=== PATIENT | female | born 1960 | race Caucasian/White ===

== ENCOUNTER 2016-09-12 18:34 | Inpatient (IN) | payer MEDICARE ==
[~2016-09-12] VITALS: Ht 160 cm; Wt 55.8 kg
[2016-09-12 19:25] LABS: HEMATOCRIT 39.8 % (36.0-46.0); MCH 30.4 PG (29.0-34.0); MCHC 35.2 G/DL (30.0-36.0); MCV 86.3 FL (83-99); PLATELET COUNT 299 K/uL (156-360); RBC DIS.WIDTH-CV 13.4 % (11.8-14.6); RBC DIS.WIDTH-SD 41.7 % (39-53); RED BLOOD COUNT 4.61 M/uL (3.80-5.20); WHITE BLOOD COUNT 17.5 K/uL (4.1-10.2)
[2016-09-12 19:38] LABS: CHLORIDE 103 mEq/L (99-109); POTASSIUM 3.5 mEq/L (3.7-5.4); SODIUM 137 mEq/L (136-147)
[2016-09-12 19:39] LABS: GLUCOSE 106 mg/dL (70-99)
[2016-09-12 19:41] LABS: ANION GAP 12 MEQ/L (2-14)
[2016-09-12 19:43] LABS: GFR ESTIMATE (CALCULATED) 54 mL/min/
[2016-09-12 19:44] LABS: UREA NITROGEN (BUN) 21 mg/dL (9-23)
[2016-09-12 19:51] LABS: TROP-I INTERPRETATION NEGATIVE; TROPONIN-I < 0.01 ng/mL (0.0-0.30)
[2016-09-12] MEDS ORDERED: LEVO-T100 MCG PO (20:47)
[2016-09-12] MEDS ORDERED: TYLENOL EXTRA500 MG PO (21:28)
[2016-09-12 22:55] LABS: TOTAL BILIRUBIN 0.8 mg/dL (0.0-1.0)
[2016-09-12 22:56] LABS: ALKALINE PHOSPHATASE 107 IU/L (3-129)
[2016-09-12 22:58] LABS: DIRECT BILIRUBIN 0.5 mg/dL (0.0-0.3)
[2016-09-12 23:18] LABS: INFLUENZA A VIRAL ANTIGEN NEGATIVE; INFLUENZA B VIRAL ANTIGEN NEGATIVE
[2016-09-13 00:37] VITALS: BP 110/58
[2016-09-13] MEDS ORDERED: VITAMIN D5000 UNI1 PO (01:30)
[2016-09-13] MEDS ORDERED: CYANOCOBALAM1000 MCG PO (01:32)
[2016-09-13] MEDS ORDERED: CALICUM PO (01:37)
[2016-09-13 02:01] LABS: TROP-I INTERPRETATION NEGATIVE; TROPONIN-I < 0.01 ng/mL (0.0-0.30)
[2016-09-13 04:20] VITALS: BP 93/61
[2016-09-13 07:00] LABS: INTERNAL CONTROL VALID? YES
[2016-09-13 08:00] VITALS: BP 99/65
[2016-09-13 08:38] LABS: POINT-OF-CARE METER ID UU14149396
[2016-09-13 09:38] LABS: EOSINOPHIL (%) 0 % (0-5); HEMATOCRIT 30.9 % (36.0-46.0); IMMATURE GRANULOCYTE (%) 0.4 % (0.0-0.7); IMMATURE GRANULOCYTE COUNT 0.1 K/uL; LYMPHOCYTE COUNT 1.2 K/uL (1.0-2.8); MCH 30.3 PG (29.0-34.0); MCHC 34.3 G/DL (30.0-36.0); MCV 88.3 FL (83-99); MEAN PLAT.VOLUME 10.1 uM^3 (9.5-12.4); MONOCYTE (%) 2.6 % (3-12); MONOCYTE COUNT 0.3 K/uL (0-0.8); NEUTROPHIL (%) 86.1 % (45-76); NEUTROPHIL COUNT 9.6 K/uL (1.8-6.4); PLATELET COUNT 228 K/uL (156-360); RBC DIS.WIDTH-SD 45.2 % (39-53); WHITE BLOOD COUNT 11.2 K/uL (4.1-10.2)
[2016-09-13 09:49] LABS: ANION GAP 8 MEQ/L (2-14); CHLORIDE 109 MEQ/L (99-109); POTASSIUM 3.9 MEQ/L (3.7-5.4); SAMPLE HEMOLYSIS CHECK 0; SAMPLE ICTERIC CHECK 0; SAMPLE LIPEMIA CHECK 0; SODIUM 138 MEQ/L (136-147)
[2016-09-13 09:54] LABS: GFR ESTIMATE (CALCULATED) > 59 mL/min/; GLUCOSE 94 mg/dL (70-99); UREA NITROGEN (BUN) 25 mg/dL (9-23)
[2016-09-13 09:58] LABS: TROP-I INTERPRETATION NEGATIVE; TROPONIN-I < 0.01 ng/mL (0.0-0.30)
[2016-09-13 11:56] LABS: POINT-OF-CARE METER ID UU13113807
[2016-09-13 16:30] VITALS: BP 122/77
[2016-09-13 17:56] LABS: POINT-OF-CARE METER ID UU13113807
[2016-09-13 20:15] VITALS: BP 118/75
[2016-09-13 23:30] VITALS: BP 103/60
[2016-09-14 00:40] VITALS: BP 112/69
[2016-09-14 07:40] LABS: HEMATOCRIT 32.1 % (36.0-46.0); MCH 30.5 PG (29.0-34.0); MCHC 34.3 G/DL (30.0-36.0); MCV 88.9 FL (83-99); PLATELET COUNT 262 K/uL (156-360); RBC DIS.WIDTH-CV 14.3 % (11.8-14.6); RBC DIS.WIDTH-SD 46.8 % (39-53); RED BLOOD COUNT 3.61 M/uL (3.80-5.20)
[2016-09-14 07:43] LABS: WHITE BLOOD COUNT 14.9 K/uL (4.1-10.2)
[2016-09-14 07:57] LABS: ALKALINE PHOSPHATASE 72 IU/L (3-129); ANION GAP 10 MEQ/L (2-14); CHLORIDE 108 MEQ/L (99-109); GFR ESTIMATE (CALCULATED) > 59 mL/min/; GLUCOSE 82 mg/dL (70-99); POTASSIUM 3.7 MEQ/L (3.7-5.4); SAMPLE HEMOLYSIS CHECK 0; SAMPLE ICTERIC CHECK 0; SAMPLE LIPEMIA CHECK 0; SODIUM 138 MEQ/L (136-147); TOTAL BILIRUBIN 0.4 MG/DL (0.0-1.0); UREA NITROGEN (BUN) 16 mg/dL (9-23)
[2016-09-14 08:00] VITALS: BP 110/64
[2016-09-14 12:00] VITALS: BP 116/77
[2016-09-14 14:20] LABS: C DIFF TOXIN NEGATIVE (NEGATIVE)
[2016-09-14 14:23] LABS: PROBE CHECK PASS; SPECIMEN PROCESSING CONTROL PASS
[2016-09-14 16:00] VITALS: BP 117/71
[2016-09-15] VITALS: BP 122/71
[2016-09-15 07:00] VITALS: BP 124/72
[2016-09-15 12:50] LABS: HEMATOCRIT 34.4 % (36.0-46.0); MCH 30.6 PG (29.0-34.0); MCHC 34.6 G/DL (30.0-36.0); MCV 88.4 FL (83-99); RBC DIS.WIDTH-CV 14.4 % (11.8-14.6); RBC DIS.WIDTH-SD 46.5 % (39-53); RED BLOOD COUNT 3.89 M/uL (3.80-5.20); WHITE BLOOD COUNT 18.6 K/uL (4.1-10.2)
[2016-09-15 12:56] LABS: MEAN PLAT.VOLUME 10.1 uM^3 (9.5-12.4)
[2016-09-15 12:57] LABS: PLATELET COUNT 384 K/uL (156-360)
[2016-09-15 13:10] LABS: ANION GAP 13 MEQ/L (2-14); CHLORIDE 109 MEQ/L (99-109); GFR ESTIMATE (CALCULATED) > 59 mL/min/; GLUCOSE 78 mg/dL (70-99); POTASSIUM 3.5 MEQ/L (3.7-5.4); SAMPLE HEMOLYSIS CHECK 0; SAMPLE ICTERIC CHECK 0; SAMPLE LIPEMIA CHECK 0; SODIUM 142 MEQ/L (136-147); UREA NITROGEN (BUN) 10 mg/dL (9-23)
[2016-09-15 13:27] LABS: BASOPHIL COUNT 0.1 K/uL (0-0.1); EOSINOPHIL (%) 0.2 % (0-5); HEMATOLOGY COMMENT 1 SMEAR COMPATIBLE; IMMATURE GRANULOCYTE (%) 1.2 % (0.0-0.7); IMMATURE GRANULOCYTE COUNT 0.2 K/uL; LYMPHOCYTE COUNT 2.3 K/uL (1.0-2.8); MONOCYTE (%) 2.7 % (3-12); MONOCYTE COUNT 0.5 K/uL (0-0.8); NEUTROPHIL COUNT 15.4 K/uL (1.8-6.4); USER ID STC
[2016-09-15 15:00] VITALS: BP 127/83
[2016-09-16] VITALS: BP 126/75
[2016-09-16 04:17] LABS: BASOPHIL COUNT 0.1 K/uL (0-0.1); EOSINOPHIL (%) 0.4 % (0-5); EOSINOPHIL COUNT 0.1 K/uL (0-0.3); HEMATOCRIT 28.4 % (36.0-46.0); IMMATURE GRANULOCYTE (%) 1.6 % (0.0-0.7); IMMATURE GRANULOCYTE COUNT 2.5 K/uL; LYMPHOCYTE COUNT 2.6 K/uL (1.0-2.8); MCH 29.6 PG (29.0-34.0); MCHC 33.5 G/DL (30.0-36.0); MCV 88.5 FL (83-99); MEAN PLAT.VOLUME 9.5 uM^3 (9.5-12.4); MONOCYTE (%) 4.1 % (3-12); MONOCYTE COUNT 0.7 K/uL (0-0.8); NEUTROPHIL (%) 77.1 % (45-76); NEUTROPHIL COUNT 12.4 K/uL (1.8-6.4); PLATELET COUNT 389 K/uL (156-360); RBC DIS.WIDTH-CV 14.2 % (11.8-14.6); RBC DIS.WIDTH-SD 44.3 % (39-53); RED BLOOD COUNT 3.21 M/uL (3.80-5.20); WHITE BLOOD COUNT 16.1 K/uL (4.1-10.2)
[2016-09-16 04:31] LABS: CHLORIDE 109 mEq/L (99-109); POTASSIUM 3.6 mEq/L (3.7-5.4); SODIUM 139 mEq/L (136-147)
[2016-09-16 04:33] LABS: GLUCOSE 78 mg/dL (70-99)
[2016-09-16 04:35] LABS: ANION GAP 11 MEQ/L (2-14)
[2016-09-16 04:37] LABS: GFR ESTIMATE (CALCULATED) > 59 mL/min/
[2016-09-16 04:38] LABS: UREA NITROGEN (BUN) 10 mg/dL (9-23)
[2016-09-16 08:00] VITALS: BP 127/76
[2016-09-16 12:00] VITALS: BP 109/62
[2016-09-16 16:46] VITALS: BP 127/73
[2016-09-16 23:36] VITALS: BP 126/67
[2016-09-17 06:26] LABS: HEMATOCRIT 28.1 % (36.0-46.0); MCH 30.5 PG (29.0-34.0); MCHC 34.5 G/DL (30.0-36.0); MCV 88.4 FL (83-99); MEAN PLAT.VOLUME 9.5 uM^3 (9.5-12.4); PLATELET COUNT 391 K/uL (156-360); RBC DIS.WIDTH-CV 14.5 % (11.8-14.6); RBC DIS.WIDTH-SD 47.3 % (39-53); RED BLOOD COUNT 3.18 M/uL (3.80-5.20); WHITE BLOOD COUNT 13.3 K/uL (4.1-10.2)
[2016-09-17 06:35] LABS: EOSINOPHIL (%) 1.6 % (0-5); EOSINOPHIL COUNT 0.2 K/uL (0-0.3); IMMATURE GRANULOCYTE (%) 1.8 % (0.0-0.7); IMMATURE GRANULOCYTE COUNT 0.2 K/uL; LYMPHOCYTE COUNT 2.7 K/uL (1.0-2.8); MONOCYTE (%) 3.5 % (3-12); MONOCYTE COUNT 0.5 K/uL (0-0.8); NEUTROPHIL (%) 72.5 % (45-76); NEUTROPHIL COUNT 9.6 K/uL (1.8-6.4)
[2016-09-17 07:12] LABS: HEMATOLOGY COMMENT 1 SMEAR COMPATIBLE; USER ID CCL
[2016-09-17 07:15] LABS: ANION GAP 9 MEQ/L (2-14); CHLORIDE 108 MEQ/L (99-109); GFR ESTIMATE (CALCULATED) > 59 mL/min/; GLUCOSE 86 mg/dL (70-99); POTASSIUM 3.4 MEQ/L (3.7-5.4); SAMPLE HEMOLYSIS CHECK 0; SAMPLE ICTERIC CHECK 0; SAMPLE LIPEMIA CHECK 0; SODIUM 140 MEQ/L (136-147); UREA NITROGEN (BUN) 7 mg/dL (9-23)
[2016-09-17 07:54] VITALS: BP 109/61
[2016-09-17 15:00] VITALS: BP 135/69
[2016-09-17 23:50] VITALS: BP 116/64
[2016-09-18 06:37] LABS: HEMATOCRIT 31.8 % (36.0-46.0); MCH 29.7 PG (29.0-34.0); MCHC 33.3 G/DL (30.0-36.0); MCV 89.1 FL (83-99); MEAN PLAT.VOLUME 9.4 uM^3 (9.5-12.4); PLATELET COUNT 457 K/uL (156-360); RBC DIS.WIDTH-CV 14.6 % (11.8-14.6); RBC DIS.WIDTH-SD 47.3 % (39-53); RED BLOOD COUNT 3.57 M/uL (3.80-5.20); WHITE BLOOD COUNT 11.6 K/uL (4.1-10.2)
[2016-09-18 06:47] LABS: EOSINOPHIL (%) 1.1 % (0-5); EOSINOPHIL COUNT 0.1 K/uL (0-0.3); IMMATURE GRANULOCYTE (%) 1.6 % (0.0-0.7); IMMATURE GRANULOCYTE COUNT 0.2 K/uL; LYMPHOCYTE COUNT 2.2 K/uL (1.0-2.8); MONOCYTE COUNT 0.5 K/uL (0-0.8); NEUTROPHIL (%) 73.8 % (45-76); NEUTROPHIL COUNT 8.6 K/uL (1.8-6.4)
[2016-09-18 06:57] LABS: ANION GAP 10 MEQ/L (2-14); CHLORIDE 106 MEQ/L (99-109); GFR ESTIMATE (CALCULATED) > 59 mL/min/; GLUCOSE 83 mg/dL (70-99); POTASSIUM 3.4 MEQ/L (3.7-5.4); SAMPLE HEMOLYSIS CHECK 0; SAMPLE ICTERIC CHECK 0; SAMPLE LIPEMIA CHECK 0; SODIUM 138 MEQ/L (136-147); UREA NITROGEN (BUN) 5 mg/dL (9-23)
[2016-09-18 07:46] VITALS: BP 121/76
[2016-09-18 16:00] VITALS: BP 126/81
[2016-09-18 23:40] VITALS: BP 123/75
[2016-09-19 06:02] LABS: HEMATOCRIT 30.4 % (36.0-46.0); MCH 29.3 PG (29.0-34.0); MCHC 32.9 G/DL (30.0-36.0); MCV 89.1 FL (83-99); MEAN PLAT.VOLUME 9.3 uM^3 (9.5-12.4); PLATELET COUNT 428 K/uL (156-360); RBC DIS.WIDTH-CV 14.3 % (11.8-14.6); RBC DIS.WIDTH-SD 46.7 % (39-53); RED BLOOD COUNT 3.41 M/uL (3.80-5.20); WHITE BLOOD COUNT 9.4 K/uL (4.1-10.2)
[2016-09-19 06:25] LABS: EOSINOPHIL (%) 1.3 % (0-5); EOSINOPHIL COUNT 0.1 K/uL (0-0.3); IMMATURE GRANULOCYTE (%) 1.8 % (0.0-0.7); IMMATURE GRANULOCYTE COUNT 0.2 K/uL; LYMPHOCYTE COUNT 1.8 K/uL (1.0-2.8); MONOCYTE (%) 3.9 % (3-12); MONOCYTE COUNT 0.4 K/uL (0-0.8); NEUTROPHIL (%) 74.1 % (45-76)
[2016-09-19 06:32] LABS: ALKALINE PHOSPHATASE 69 IU/L (3-129); ANION GAP 10 MEQ/L (2-14); CHLORIDE 106 MEQ/L (99-109); GFR ESTIMATE (CALCULATED) > 59 mL/min/; GLUCOSE 86 mg/dL (70-99); POTASSIUM 3.9 MEQ/L (3.7-5.4); SAMPLE HEMOLYSIS CHECK 0; SAMPLE ICTERIC CHECK 0; SAMPLE LIPEMIA CHECK 0; SODIUM 140 MEQ/L (136-147); TOTAL BILIRUBIN 0.4 MG/DL (0.0-1.0); UREA NITROGEN (BUN) 4 mg/dL (9-23)
[2016-09-19 08:02] VITALS: BP 138/79
[2016-09-19 16:16] VITALS: BP 125/79
[2016-09-19 20:00] VITALS: BP 118/78
[2016-09-20] VITALS: BP 130/68
[2016-09-20 06:24] LABS: EOSINOPHIL (%) 1.7 % (0-5); EOSINOPHIL COUNT 0.2 K/uL (0-0.3); HEMATOCRIT 30.7 % (36.0-46.0); IMMATURE GRANULOCYTE (%) 1.5 % (0.0-0.7); IMMATURE GRANULOCYTE COUNT 1.5 K/uL; LYMPHOCYTE COUNT 2.2 K/uL (1.0-2.8); MCH 29.8 PG (29.0-34.0); MCHC 33.6 G/DL (30.0-36.0); MCV 88.7 FL (83-99); MEAN PLAT.VOLUME 8.9 uM^3 (9.5-12.4); MONOCYTE (%) 5.2 % (3-12); MONOCYTE COUNT 0.5 K/uL (0-0.8); NEUTROPHIL (%) 70.3 % (45-76); NEUTROPHIL COUNT 7.2 K/uL (1.8-6.4); PLATELET COUNT 500 K/uL (156-360); RBC DIS.WIDTH-CV 14.5 % (11.8-14.6); RBC DIS.WIDTH-SD 45.5 % (39-53); RED BLOOD COUNT 3.46 M/uL (3.80-5.20); WHITE BLOOD COUNT 10.2 K/uL (4.1-10.2)
[2016-09-20 06:29] LABS: CHLORIDE 108 mEq/L (99-109); SODIUM 139 mEq/L (136-147)
[2016-09-20 06:31] LABS: GLUCOSE 85 mg/dL (70-99)
[2016-09-20 06:32] LABS: ANION GAP 10 MEQ/L (2-14)
[2016-09-20] MEDS ORDERED: LEVAQUIN750 MG PO (06:33)
[2016-09-20] MEDS ORDERED: CEFTIN500 MG PO (06:33)
[2016-09-20 06:35] LABS: GFR ESTIMATE (CALCULATED) > 59 mL/min/; UREA NITROGEN (BUN) 5 mg/dL (9-23)
[2016-09-20 08:03] VITALS: BP 136/74
== END 2016-09-20 17:54 | disposition home or self-care (01) | DRG 871 ==
LOC: EME 18:34 → 4SOUTH 22:20 → EDOF 22:20 → 4SOUTH 09-13 00:21
PROVIDERS: Hospitalist; Internal Medicine
DX: A41.9 Sepsis, unspecified organism (principal); J13 Pneumonia due to Streptococcus pneumoniae; E87.6 Hypokalemia; K58.0 Irritable bowel syndrome with diarrhea; E03.9 Hypothyroidism, unspecified; Z87.891 Personal history of nicotine dependence
CPT/HCPCS: 71020; 71250; 80048; 80053; 80076; 82948; 83605; 84484; 85025; 85027; 87040; 87070; 87106; 87205; 87449; 87493; 87502; 93005; 94640; 94640 76; 94799; 99202; 99281; 99285; J0456; J0696; J1644; J1885; J1956; J3370; J7030; J7050